=== PATIENT | male | born 1960 | race Caucasian/White ===

== ENCOUNTER 2021-01-18 21:02 | Inpatient (IN) | payer MEDICARE, OTHER ==
[~2021-01-18] VITALS: Ht 188 cm; Wt 82.1 kg
[2021-01-18] MEDS ORDERED: LEVO137T2 PO (21:36)
[2021-01-18] MEDS ORDERED: HYDR-894 PO (21:36)
[2021-01-18] MEDS ORDERED: GABA600T PO (21:36)
[2021-01-18] MEDS ORDERED: FAMO-132 PO (21:36)
[2021-01-18] MEDS ORDERED: EMPA25TA PO (21:36)
[2021-01-18] MEDS ORDERED: MAGN400O6 PO (21:36)
[2021-01-18] MEDS ORDERED: INSU100V28 SQ (21:36)
[2021-01-18] MEDS ORDERED: BISA10SU61 RC (21:36)
[2021-01-18] MEDS ORDERED: NA P133E RC (21:36)
[2021-01-18] MEDS ORDERED: NIFE-34 PO (21:36)
[2021-01-18] MEDS ORDERED: DULO60CA45 PO (21:36)
[2021-01-18] MEDS ORDERED: ESCI5TAB PO (21:36)
[2021-01-18] MEDS ORDERED: BUPR300T52 PO (21:36)
[2021-01-18] MEDS ORDERED: NITR0.4T SL (21:36)
[2021-01-18] MEDS ORDERED: LIRA0.6P2 SQ (21:36)
[2021-01-18] MEDS ORDERED: NALO4SPR NS (21:37)
[2021-01-18] MEDS ORDERED: INSU100V28 (21:37)
[2021-01-18] MEDS ORDERED: ACET-2154 PO (21:37)
[2021-01-18] MEDS ORDERED: METH-807 PO (21:37)
[2021-01-18] MEDS ORDERED: ACET-73 PO (21:37)
[2021-01-18] MEDS ORDERED: INSU100V7 SQ (21:37)
[2021-01-18] MEDS ORDERED: ATOR20TA PO (21:37)
[2021-01-18] MEDS ORDERED: OXYC10TA49 PO (21:37)
[2021-01-18 21:57] LABS: HEMATOCRIT 32.8 % (36.7-47.1); MEAN CORPUSCULAR HEMOGLOBIN 30.3 uug (23.8-33.4); MEAN CORPUSCULAR VOLUME 90.6 fL (73.0-96.2); PLATELET COUNT (AUTO) 489 K/uL (152-348)
[2021-01-18 22:02] LABS: CARBON DIOXIDE 25 mmol/L (21-32); CHLORIDE 103 mmol/L (98-107); CREATININE 1.8 mg/dL (0.6-1.3); GLUCOSE 310 mg/dL (74-106); POTASSIUM 4.5 mmol/L (3.5-5.1); UREA NITROGEN, BLOOD 22 mg/dL (7-18)
[2021-01-18 22:07] LABS: ALANINE AMINOTRANSFERASE 14 U/L (16-63); ALKALINE PHOSPHATASE 86 U/L (50-136); ASPARTATE AMINOTRANSFERASE 7 U/L (15-37); BILIRUBIN,DIRECT < 0.1 mg/dL (0.0-0.2); BILIRUBIN,TOTAL 0.3 mg/dL (0.2-1.0); TOTAL PROTEIN, SERUM 7.8 g/dL (6.4-8.2)
--- NOTE | 2021-01-18 22:36 | NUR ---
Per laborer beam house, 1:1 sitter coming in at 2300. Security standby for patient safety.
--- NOTE | 2021-01-18 22:39 | NUR ---
Sitter now at bedside, direct observation ongoing.
--- NOTE | 2021-01-18 22:50 | NUR ---
Pt medically cleared by Dr. Price
--- NOTE | 2021-01-18 23:12 | NUR ---
Pt. admitted to [facility], under care of Dr. Dalal/Mona Montoya NP Dx: Psychsis/5150 Hold DTS Belongs List completed. MRSA swab done
[2021-01-18] MEDS ORDERED: MAGNESIUM HYDROXIDE 30 ML LIQUID UDC PO PRN (23:30)
[2021-01-18] MEDS ORDERED: MAG HYDROX/AL HYDROX/SIMETH 30 ML LIQUID UDC PO PRN (23:30)
[2021-01-18] MEDS ORDERED: ACETAMINOPHEN 325 MG TABLET PO PRN (23:30)
[2021-01-19] MEDS: TEMAZEPAM 7.5 MG CAPSULE PO PRN (00:08)
[2021-01-19 00:15] VITALS: BP 161/73
--- NOTE | 2021-01-19 01:39 | NUR ---
Received pt from ER on a gurney in a safe, stable condition at 2330. Alert/oriented x 3. Pt is on 5150 hold for DTS. Per hold, pt is here because of SI, telling his roommate at the SNF that he wanted to hang himself. Upon assessment, pt is cooperative with admission procedure, able to contract for safety and provide details of what happened. Able to make needs known and express himself well. Oriented pt to the unit and his room, assisted to a comfortable position. Psych and MD aware of admission. Pt's Rights Handbook and Advisement given. Safety precautions in place, q15 mins check to be done per unit protocol. Refused assessment of and interventions for amputation site at the time of admission, stating the dressing was changed yesterday at the SNF and that dressing changes are done at the same facility daily. Will endorse accordingly and continue to monitor.
[2021-01-19] MEDS: LORAZEPAM 1 MG TABLET PO PRN (02:09)
--- NOTE | 2021-01-19 06:08 | NUR ---
This nurse called Erlinda Esparza NP ([facility] on-call) to request for pt's med recon. LEASE ADMINISTRATION ANALYST agreed to do it.
--- NOTE | 2021-01-19 06:11 | NUR ---
Firearms Report: Policy Service Coordinator completed and submitted a [employer] firearms report for 5150 grave disability certification. A copy of report has been placed in patient chart.
[2021-01-19] MEDS ORDERED: ACETAMINOPHEN 325 MG TABLET PO PRN ×2 (06:15)
[2021-01-19] MEDS ORDERED: MAGNESIUM HYDROXIDE 30 ML LIQUID UDC PO PRN (06:15)
[2021-01-19] MEDS ORDERED: FLEET ENEMA 133 ML BOTTLE RC PRN (06:15)
[2021-01-19] MEDS ORDERED: INSULIN REGULAR, HUMAN 300 UNIT/3 ML VIAL SQ PRN (06:15)
[2021-01-19] MEDS ORDERED: Medication Not On Formulary EA (Oxycodone Hcl 1 TAB) PO PRN (06:15)
[2021-01-19] MEDS ORDERED: BISACODYL 10 MG SUPP.RECT RC PRN (06:15)
[2021-01-19] MEDS ORDERED: DEXTROSE 50% 50 ML DISP.SYRIN IV PRN ×2 (06:15→19:15)
[2021-01-19] MEDS ORDERED: NITROGLYCERIN 0.4 MG/TAB BOTTLE SL PRN (06:15)
[2021-01-19] MEDS ORDERED: ACETAMINOPHEN ES 500 MG TABLET PO PRN (06:15)
[2021-01-19] MEDS: BLOOD SUGAR DIAGNOSTIC 1 EACH STRIP VI SCH ×4 (07:30→21:00)
--- NOTE | 2021-01-19 07:38 | NUR ---
SW Initial Discharge Plan: Patient currently resides at [facility] [place] [address]; ). Admissions is currently closed and this SW will follow up with admissions on 01/22/21 if pt is accepted back. This SW contacted patient's son Balbir ([phone]) to gather collateral and this SW left a voicemail. SW will coordinate discharge plan with MD and treatment team.
--- NOTE | 2021-01-19 07:40 | NUR ---
SW Family Contact: This SW contacted patient's son Balbir ([phone]) and discussed treatment and discharge plan.
--- NOTE | 2021-01-19 07:42 | NUR ---
Treatment Plan: Pt appeared guarded and refused to sign.
[2021-01-19 07:56] VITALS: BP 135/64
[2021-01-19] MEDS ORDERED: MISCELLANEOUS MED XX PRN (08:30)
[2021-01-19] MEDS ORDERED: Medication Not On Formulary EA (Empagliflozin (Jardiance) 25 MG) PO SCH (09:00)
[2021-01-19] MEDS ORDERED: OXYCODONE HCL 5 MG TABLET PO PRN (09:45)
[2021-01-19] MEDS: hydrALAZINE HCL 25 MG TABLET PO SCH ×2 (09:52→16:46)
[2021-01-19] MEDS: FAMOTIDINE 20 MG TABLET PO SCH (09:52)
[2021-01-19] MEDS: NIFEdipine XL 60 MG TABSR PO SCH (09:54)
[2021-01-19] MEDS: LEVOTHYROXINE SODIUM 137 MCG TABLET PO SCH (09:54)
[2021-01-19] MEDS: METHOCARBAMOL 750 MG TABLET PO PRN (09:54)
[2021-01-19] MEDS: GABAPENTIN 300 MG CAPSULE PO SCH ×3 (09:56→21:54)
[2021-01-19 15:56] VITALS: BP 139/65
[2021-01-19] MEDS: DULOXETINE 60 MG CAPSULE.DR PO SCH (17:43)
--- NOTE | 2021-01-19 20:00 | NUR ---
RECEIVED REPORT FROM AM NURSE KARINA INTRODUCED MYSELF TO PT INFORMED HIM I WILL BE HIS NURSE FOR REST OF SHIFT PT NODDED HIS HEAD AND WENT BACK TO SLEEP.
[2021-01-19 20:02] VITALS: BP 136/64
[2021-01-19] MEDS: INSULIN GLARGINE,HUM 300 UNITS/3 ML CARTRIDGE SQ SCH (21:00)
--- NOTE | 2021-01-19 21:30 | NUR ---
PT REFUSED HS LANTUS AND ACCUCHECK BUT TOOK HIS MEDICATION ORDERED NO ADVERSE REACTION NOTED. WILL CONTINUE TO MONITOR.
[2021-01-19] MEDS: ATORVASTATIN 20 MG TABLET PO SCH (21:54)
[2021-01-20] MEDS: GABAPENTIN 300 MG CAPSULE PO SCH ×3 (06:12→21:06)
[2021-01-20] MEDS: LEVOTHYROXINE SODIUM 137 MCG TABLET PO SCH (06:12)
[2021-01-20] MEDS: BLOOD SUGAR DIAGNOSTIC 1 EACH STRIP VI SCH ×4 (06:13→20:37)
[2021-01-20 08:00] VITALS: BP 116/57
[2021-01-20] MEDS: INSULIN GLARGINE,HUM 300 UNITS/3 ML CARTRIDGE SQ SCH ×2 (09:00→20:33)
[2021-01-20] MEDS: hydrALAZINE HCL 25 MG TABLET PO SCH ×2 (09:00→16:52)
[2021-01-20] MEDS: buPROPion XL 150 MG TAB.SR.24H PO SCH (09:24)
[2021-01-20] MEDS: FAMOTIDINE 20 MG TABLET PO SCH (09:24)
[2021-01-20] MEDS: DULOXETINE 60 MG CAPSULE.DR PO SCH (09:25)
[2021-01-20] MEDS: METHOCARBAMOL 750 MG TABLET PO PRN (09:25)
[2021-01-20] MEDS: NIFEdipine XL 60 MG TABSR PO SCH (09:26)
[2021-01-20] MEDS: INSULIN REGULAR, HUMAN 300 UNIT/3 ML VIAL SQ PRN ×2 (12:01→17:08)
[2021-01-20 16:04] VITALS: BP 110/51
--- NOTE | 2021-01-20 18:17 | NUR ---
Patient resting in bed. Alert and oriented x2-3. No signs of acute distress. Ambulatory with walker. Able to care for self. Patient compliant with medications and care. Patient complained of pain on right foot, contacted Dr. Swartz for orders, awaiting call back. Patient denies SI/ HI. Encouraged patient to interact with peers and staff, but patient remains in room and withdrawn. Frequent patient rounding for safety. Will endorse to incoming shift for continuity of care.
[2021-01-20 20:00] VITALS: BP 126/63
[2021-01-20] MEDS: ATORVASTATIN 20 MG TABLET PO SCH (20:29)
[2021-01-20] MEDS: TEMAZEPAM 7.5 MG CAPSULE PO PRN (20:29)
[2021-01-20] MEDS: INSULIN REGULAR, HUMAN 300 UNITS/3 ML VIAL SQ PRN (20:35)
[2021-01-21] MEDS: LEVOTHYROXINE SODIUM 137 MCG TABLET PO SCH (06:21)
[2021-01-21] MEDS: GABAPENTIN 300 MG CAPSULE PO SCH ×2 (06:22→20:09)
--- NOTE | 2021-01-21 06:49 | NUR ---
Pt asleep at this time, no s/s of distress. Slept for 7.30hrs. No change in LOC. Pt compliant with meds during the shift. BG checked, routing Lantus and Humulin R given per SS at bedtime. Snacks provided. Needs attended to in a timely manner. Q15 min checks done. Safety precautions in place. Will endorse accordingly.
--- NOTE | 2021-01-21 07:15 | NUR ---
NURSE REPORT Report obtained from night nurse Josh and this nurse assume care of patient. No sxs of pain or discomfort. BG this am- 260. Insulin given as ordered.
[2021-01-21 07:30] VITALS: BP 126/52
[2021-01-21] MEDS: BLOOD SUGAR DIAGNOSTIC 1 EACH STRIP VI SCH ×4 (07:30→20:10)
[2021-01-21] MEDS: NIFEdipine XL 60 MG TABSR PO SCH (08:51)
[2021-01-21] MEDS: hydrALAZINE HCL 25 MG TABLET PO SCH ×2 (08:51→16:39)
[2021-01-21] MEDS: FAMOTIDINE 20 MG TABLET PO SCH (08:51)
[2021-01-21] MEDS: DULOXETINE 60 MG CAPSULE.DR PO SCH (08:52)
[2021-01-21] MEDS: buPROPion XL 150 MG TAB.SR.24H PO SCH (08:54)
[2021-01-21] MEDS: INSULIN REGULAR, HUMAN 300 UNIT/3 ML VIAL SQ PRN ×3 (08:56→16:53)
[2021-01-21] MEDS: INSULIN GLARGINE,HUM 300 UNITS/3 ML CARTRIDGE SQ SCH ×2 (08:59→20:12)
[2021-01-21] MEDS: METHOCARBAMOL 750 MG TABLET PO PRN (09:07)
--- NOTE | 2021-01-21 12:15 | NUR ---
NURSE CARE BG before lunch- 229 and received 4 units Regular Insulin. This am, BG 212 and received 4 units Regular Insulin and had Glargine 10 units.
[2021-01-21] MEDS ORDERED: GABAPENTIN 300 MG CAPSULE PO SCH (14:00)
[2021-01-21] MEDS ORDERED: GABAPENTIN 400 MG CAPSULE PO SCH (14:00)
[2021-01-21 15:06] VITALS: BP 126/60
--- NOTE | 2021-01-21 17:45 | NUR ---
NURSE CARE BG before dinner 326 and 8 units Regular Insulin given. Roommate was asking that he be moved, sayuing this person will do harm, to him. Patient stated he has no SI and no intentions of hurting anyone.
--- NOTE | 2021-01-21 19:15 | NUR ---
Report given to CHARLI Maravilla) to assume care of patient. SBAR given. On BG AC & HS. Before dinner- 326, and patient given 8 units Regular Insulin
[2021-01-21 20:07] VITALS: BP 132/56
[2021-01-21] MEDS: ATORVASTATIN 20 MG TABLET PO SCH (20:09)
[2021-01-21] MEDS: INSULIN REGULAR, HUMAN 300 UNITS/3 ML VIAL SQ PRN (20:15)
[2021-01-21] MEDS: TEMAZEPAM 7.5 MG CAPSULE PO PRN (21:20)
[2021-01-21] MEDS: LORAZEPAM 1 MG TABLET PO PRN (23:06)
[2021-01-22] MEDS: LEVOTHYROXINE SODIUM 137 MCG TABLET PO SCH (06:15)
[2021-01-22] MEDS: BLOOD SUGAR DIAGNOSTIC 1 EACH STRIP VI SCH ×4 (06:18→20:13)
--- NOTE | 2021-01-22 06:28 | NUR ---
GPS: Pt.slept 6 hrs.last night. B.S. now is 216mg/dl. Denies wanting to harm self. Safety checks done Q15 minutes as scheduled. Will continue to monitor.
[2021-01-22 07:30] VITALS: BP 136/60
[2021-01-22] MEDS: NIFEdipine XL 60 MG TABSR PO SCH (08:29)
[2021-01-22] MEDS: buPROPion XL 150 MG TAB.SR.24H PO SCH (08:29)
[2021-01-22] MEDS: FAMOTIDINE 20 MG TABLET PO SCH (08:30)
[2021-01-22] MEDS: hydrALAZINE HCL 25 MG TABLET PO SCH ×2 (08:30→16:31)
[2021-01-22] MEDS: GABAPENTIN 300 MG CAPSULE PO SCH ×2 (08:30→20:07)
[2021-01-22] MEDS: DULOXETINE 60 MG CAPSULE.DR PO SCH (08:30)
[2021-01-22] MEDS: INSULIN REGULAR, HUMAN 300 UNIT/3 ML VIAL SQ PRN ×4 (08:31→16:38)
[2021-01-22] MEDS: INSULIN GLARGINE,HUM 300 UNITS/3 ML CARTRIDGE SQ SCH ×2 (08:37→20:14)
[2021-01-22 15:06] VITALS: BP 118/54
--- NOTE | 2021-01-22 15:46 | NUR ---
This job specification writer spoke with wound care nurse, Elizabeth, who stated she will see patient tomorrow. 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 patient is refusing for this RN to look at wound and to open dressing that is wrapped around his right foot. patient states he does not want anyone to look at it unless wound care will be done, patient informed that this job specification writer can assess foot and determine next appropriate actions, but he refuses. patient is able to ambulate with a FWW. patient states that he uses Oxycodone for pain but that medication is not given to him while on this unit.
[2021-01-22] MEDS ORDERED: DEXTROSE 50% 50 ML DISP.SYRIN IV PRN (17:00)
--- NOTE | 2021-01-22 17:43 | NUR ---
BLOOD SUGAR CHECK: Blood sugar 426. Patient showing no signs or symptoms of hyperglycemia. alert and oriented x4. 10 units of regular insulin given per sliding scale order. Dr. Reginaldo Landry notified. Orders given for an additional 6 units of regular insulin, increase Lantus to 20 Units SQ Q12 hours, and increase sliding scale insulin to moderate scale. Orders noted and carried out. Patient provided with education about change in orders and how to control DM through appropriate diet since patient requests snacks and milk throughout the day. Patient is able to verbalize understanding of teaching. Patient ate dinner, tolerate food and fluids well.
[2021-01-22] MEDS: ATORVASTATIN 20 MG TABLET PO SCH (20:07)
[2021-01-22 20:08] VITALS: BP 133/61
[2021-01-22] MEDS: INSULIN REGULAR, HUMAN 300 UNITS/3 ML VIAL SQ PRN (20:15)
[2021-01-22] MEDS ORDERED: INSULIN GLARGINE,HUM 300 UNITS/3 ML CARTRIDGE SQ SCH (21:00)
[2021-01-23] MEDS: LEVOTHYROXINE SODIUM 137 MCG TABLET PO SCH (06:15)
[2021-01-23] MEDS: BLOOD SUGAR DIAGNOSTIC 1 EACH STRIP VI SCH ×4 (06:32→20:04)
[2021-01-23 07:12] LABS: HEMATOCRIT 32.9 % (36.7-47.1); MEAN CORPUSCULAR HEMOGLOBIN 29.5 uug (23.8-33.4); MEAN CORPUSCULAR VOLUME 89.6 fL (73.0-96.2); PLATELET COUNT (AUTO) 444 K/uL (152-348)
[2021-01-23 07:29] LABS: ALANINE AMINOTRANSFERASE 15 U/L (16-63); ALKALINE PHOSPHATASE 78 U/L (50-136); ASPARTATE AMINOTRANSFERASE < 5 U/L (15-37); BILIRUBIN,TOTAL 0.3 mg/dL (0.2-1.0); CARBON DIOXIDE 24 mmol/L (21-32); CHLORIDE 108 mmol/L (98-107); CREATININE 1.4 mg/dL (0.6-1.3); GLUCOSE 137 mg/dL (74-106); MAGNESIUM 2.5 mg/dL (1.8-2.4); PHOSPHOROUS 4.2 mg/dL (2.5-4.9); TOTAL PROTEIN, SERUM 7.6 g/dL (6.4-8.2); UREA NITROGEN, BLOOD 42 mg/dL (7-18)
[2021-01-23 07:30] VITALS: BP 107/48
[2021-01-23] MEDS: hydrALAZINE HCL 25 MG TABLET PO SCH ×2 (08:32→16:45)
[2021-01-23] MEDS: NIFEdipine XL 60 MG TABSR PO SCH (08:33)
[2021-01-23] MEDS: FAMOTIDINE 20 MG TABLET PO SCH (08:33)
[2021-01-23] MEDS: GABAPENTIN 300 MG CAPSULE PO SCH ×3 (08:33→21:40)
[2021-01-23] MEDS: DULOXETINE 60 MG CAPSULE.DR PO SCH (08:34)
[2021-01-23] MEDS: buPROPion XL 150 MG TAB.SR.24H PO SCH (08:34)
[2021-01-23] MEDS: INSULIN GLARGINE,HUM 300 UNITS/3 ML CARTRIDGE SQ SCH ×2 (08:39→20:23)
[2021-01-23] MEDS: INSULIN REGULAR, HUMAN 300 UNIT/3 ML VIAL SQ PRN ×2 (11:51→16:58)
--- NOTE | 2021-01-23 12:02 | NUR ---
WOUND CARE CONSULT: PT PRESENTS WITH RT FOOT WOUND WITH BONE EXPOSURE, PRESENT ON ADMISSION, NO DRAINAGE. DPM CONSULT CALLED TO DR BELCZYK. ARNETT IN AGREEMENT WITH PLAN OF CARE. FOAM DRESSING IN USE AT THIS TIME.
--- NOTE | 2021-01-23 15:24 | NUR ---
Individual Therapy: civil service worker met with patient for brief counseling and assessed for level of suicidality. civil service worker assessed for suicidal thoughts, patient denied suicidal thoughts. Patient stated "I never had suicidal thoughts". Pt expressed that at [facility] people kept saying that he had "girl problems" and that "I was only friends with an employee". Pt unable to focus and is fixated on his 5250 and discharge. SW unable to conduct therapy at this time.
[2021-01-23 16:03] VITALS: BP 147/65
[2021-01-23] MEDS ORDERED: SODIUM HYPOCHLORITE 0.25% (HALF STRENGTH) 480 ML BOTTLE TOP SCH (17:00)
--- NOTE | 2021-01-23 17:00 | NUR ---
Dr. Graham.Sharon ALEMAN here seen and checked patient's right foot,wound C/s sent to lab, treatment done as ordered
[2021-01-23 20:10] VITALS: BP 109/56
--- NOTE | 2021-01-23 20:14 | NUR ---
TEXTED DR. THORNE FOR MRI APPROVAL.
[2021-01-23] MEDS: INSULIN REGULAR, HUMAN 300 UNITS/3 ML VIAL SQ PRN (20:25)
[2021-01-23] MEDS ORDERED: ATORVASTATIN 40 MG TABLET PO SCH (21:00)
[2021-01-24] MEDS: GABAPENTIN 300 MG CAPSULE PO SCH ×2 (06:07→14:31)
[2021-01-24] MEDS: LEVOTHYROXINE SODIUM 137 MCG TABLET PO SCH (06:07)
[2021-01-24] MEDS: BLOOD SUGAR DIAGNOSTIC 1 EACH STRIP VI SCH ×2 (06:20→12:34)
[2021-01-24 07:30] VITALS: BP 116/63
[2021-01-24] MEDS: FAMOTIDINE 20 MG TABLET PO SCH (08:58)
[2021-01-24] MEDS: hydrALAZINE HCL 25 MG TABLET PO SCH (08:59)
[2021-01-24] MEDS: NIFEdipine XL 60 MG TABSR PO SCH (09:00)
[2021-01-24] MEDS: buPROPion XL 150 MG TAB.SR.24H PO SCH (09:00)
[2021-01-24] MEDS: DULOXETINE 60 MG CAPSULE.DR PO SCH (09:00)
[2021-01-24] MEDS ORDERED: SODIUM HYPOCHLORITE 0.125% (QUARTER STRENGTH) 473 ML BOTTLE TP SCH (09:00)
[2021-01-24] MEDS: INSULIN GLARGINE,HUM 300 UNITS/3 ML CARTRIDGE SQ SCH (09:19)
[2021-01-24] MEDS: INSULIN REGULAR, HUMAN 300 UNIT/3 ML VIAL SQ PRN (12:31)
--- NOTE | 2021-01-24 13:51 | NUR ---
Transfer Note: Patient will be transferred to medical floor due to Osteomyelitis. Dr. Dalal will discontinue the hold. Patient is from [facility] [address] [place] [address]; ). Soft Boarder spoke with SUSANNE, Economic Research Assistant at [facility]; ([phone]), who stated patient will be accepted back upon discharge. Patient is alert and oriented x3 and is not able to plan for self-care at this time but is willing to accept care provided at his facility. Patient denies any suicidal or homicidal ideations. Patients Son Balbir ([phone]) is involved in patient's care. Patient will continue to follow-up with his Psychiatrist Dr. Dalal and Online Content Developer Dr. Vasquez at [facility] [address] [place] [address]; ).
--- NOTE | 2021-01-24 15:08 | NUR ---
Gps/Promotion Officer- Patient was fully aware, informed of his MRI of the right foot scheduled this pm. he will be transported via ambulance as arranged by Appeals Writer from [facility] . Patient will be discharge to 3rd floor when he comes back from MRI for higher level of care. Will coordinate discharge to 3rd floor with Process Mechanic Rahoni.
--- NOTE | 2021-01-24 15:50 | NUR ---
Gps/Glass Ribbon Machine Operator Assistant- Discharge plan changed to [facility] 3rd floor instead for [facility]. 3rd floor per Case Planner Sydnie
[2021-01-24 16:00] VITALS: BP 130/70
--- NOTE | 2021-01-24 16:23 | NUR ---
Gps/Yard Coordinator- Hold dc'd as ordered by Dr Dalal, patient was well informed of discharge to [facility] , schedule for early procedure as noted. Patient is to be discharged to [facility] to room # 320 , report given to Chris Mclaughlin . Discharged to [facility], via ambulance in good spirit, denies SI. nor HI. all belongings and valuables given back to patient.
== END 2021-01-24 16:30 | disposition short-term general hospital (02) | DRG 885 ==
LOC: ER 21:02 → GPS 23:08
PROVIDERS: ADMIT Psychiatry & Neurology Psychiatry; ATTEND Internal Medicine
DX: F33.3 Major depressive disorder, recurrent, severe with psychotic symptoms (principal); N18.9 Chronic kidney disease, unspecified; N17.0 Acute kidney failure with tubular necrosis; M86.8X7 Other osteomyelitis, ankle and foot; E11.65 Type 2 diabetes mellitus with hyperglycemia; R45.851 Suicidal ideations; L97.518 Non-pressure chronic ulcer of other part of right foot with other specified severity; X83.8XXA Intentional self-harm by other specified means, initial encounter; Y92.129 Unspecified place in nursing home as the place of occurrence of the external cause; E11.51 Type 2 diabetes mellitus with diabetic peripheral angiopathy without gangrene; I45.10 Unspecified right bundle-branch block; Z79.899 Other long term (current) drug therapy; D64.9 Anemia, unspecified; D72.829 Elevated white blood cell count, unspecified; E03.9 Hypothyroidism, unspecified; E11.42 Type 2 diabetes mellitus with diabetic polyneuropathy; E78.5 Hyperlipidemia, unspecified; G89.29 Other chronic pain; J44.9 Chronic obstructive pulmonary disease, unspecified; Z79.4 Long term (current) use of insulin; Z98.62 Peripheral vascular angioplasty status; Z20.822 Contact with and (suspected) exposure to COVID-19; E11.621 Type 2 diabetes mellitus with foot ulcer; E11.69 Type 2 diabetes mellitus with other specified complication; Z89.421 Acquired absence of other right toe(s); E11.22 Type 2 diabetes mellitus with diabetic chronic kidney disease; I12.9 Hypertensive chronic kidney disease with stage 1 through stage 4 chronic kidney disease, or unspecified chronic kidney disease; Y93.9 Activity, unspecified; M48.00 Spinal stenosis, site unspecified; F03.90 Unspecified dementia, unspecified severity, without behavioral disturbance, psychotic disturbance, mood disturbance, and anxiety; F17.210 Nicotine dependence, cigarettes, uncomplicated
CPT/HCPCS: 36415; 71045; 73630; 83735; 84100; 85025; 85651; 86140; 87070; 87077; J1815

== ENCOUNTER 2021-02-13 23:43 | Inpatient (IN) | payer MEDICARE, OTHER ==
[~2021-02-13] VITALS: Ht 182.9 cm; Wt 84.8 kg
[~2021-02-13 23:43] MED LIST: ACET-2154 PO; ACET-73 PO; ATOR20TA PO; BISA10SU61 RC; EMPA25TA PO; FAMO-132 PO; GABA600T PO; HYDR-894 PO; INSU100V28; INSU100V28 SQ; INSU100V7 SQ; LEVO137T2 PO; LIRA0.6P2 SQ; MAGN400O6 PO; METH750T3 PO; NA P133E RC; NALO4SPR NS; NIFE-34 PO; NITR0.4T SL; OXYC10TA49 PO
[2021-02-14 00:28] LABS: HEMATOCRIT 26.3 % (36.7-47.1); MEAN CORPUSCULAR HEMOGLOBIN 30.6 uug (23.8-33.4); MEAN CORPUSCULAR VOLUME 92.2 fL (73.0-96.2); PLATELET COUNT (AUTO) 327 K/uL (152-348)
[2021-02-14 00:44] LABS: ALANINE AMINOTRANSFERASE 13 U/L (16-63); ALKALINE PHOSPHATASE 86 U/L (50-136); ASPARTATE AMINOTRANSFERASE 8 U/L (15-37); BILIRUBIN,DIRECT 0.1 mg/dL (0.0-0.2); BILIRUBIN,TOTAL 0.2 mg/dL (0.2-1.0); CARBON DIOXIDE 21 mmol/L (21-32); CHLORIDE 109 mmol/L (98-107); CREATININE 2.1 mg/dL (0.6-1.3); GLUCOSE 240 mg/dL (74-106); POTASSIUM 3.8 mmol/L (3.5-5.1); TOTAL PROTEIN, SERUM 7.2 g/dL (6.4-8.2); UREA NITROGEN, BLOOD 38 mg/dL (7-18)
[2021-02-14 00:46] LABS: ACETAMINOPHEN < 2.0 ug/mL (10-30)
[2021-02-14] MEDS ORDERED: ESCI5TAB PO (00:54)
[2021-02-14] MEDS ORDERED: INSU100V7 SQ (00:54)
[2021-02-14] MEDS ORDERED: CLOP75TA15 PO (00:54)
[2021-02-14] MEDS ORDERED: ASPI81TA31 PO (00:54)
[2021-02-14] MEDS ORDERED: FERR325T28 PO (00:54)
[2021-02-14] MEDS ORDERED: ARIP5TAB10 PO (00:54)
[2021-02-14] MEDS ORDERED: LEVO100T10 PO (00:54)
[2021-02-14] MEDS ORDERED: INSU100V SUBCUT (00:54)
[2021-02-14] MEDS ORDERED: MULT-594 PO (00:54)
[2021-02-14] MEDS ORDERED: NIFE30TA91 PO (00:54)
[2021-02-14 00:59] LABS: ETHANOL < 3 MG/DL (0-0)
--- NOTE | 2021-02-14 01:00 | NUR ---
Called [facility], Dr. Rico will call back.
--- NOTE | 2021-02-14 01:15 | NUR ---
Pt. was sleeping in bed, woke pt up to assess the patient, assess his foot, and request that he give us urine. Pt. requested he see the 5150 hold paperwork. Showed pt. the paperwork, he became angry and argumentative about being on a hold, stating he did not need to be here, and denying that he wanted to harm himself. He requested we set him up with transportation so he can go home. Explained to the pt. that we cannot let him leave. Pt began rasing his voice, collecting his belongings to leave. Verbal deescalation attempted. Security called.
[2021-02-14] MEDS ORDERED: Z GUARD REMEDY PASTE 57 GM TUBE TOP PRN (01:30)
[2021-02-14] MEDS ORDERED: ONDANSETRON 4 MG/2 ML VIAL IV PRN (01:30)
[2021-02-14] MEDS ORDERED: DEXTROSE 50% 50 ML DISP.SYRIN IV PRN (01:30)
[2021-02-14] MEDS ORDERED: HALOPERIDOL LACTATE 5 MG/1 ML VIAL IM ONE (02:30)
[2021-02-14] MEDS ORDERED: LORAZEPAM 2 MG/1 ML VIAL IM ONE (02:30)
--- NOTE | 2021-02-14 02:30 | NUR ---
Monitoring pt.1:1, multiple attempts to verbally keep patient in his room but pt. refusing to cooperate. notified.
[2021-02-14] MEDS ORDERED: HALOPERIDOL LACTATE 5 MG/1 ML VIAL ONE (02:35)
[2021-02-14] MEDS ORDERED: LORAZEPAM 2 MG/1 ML VIAL ONE (02:36)
--- NOTE | 2021-02-14 02:40 | NUR ---
Pt. attempted to lock himself in the restroom. Security called and shot of ativan and haldol given. pt. is in bed now, not currently yelling or attempting to leave. Pt. is being monitored 1:1.
[2021-02-14] MEDS ORDERED: diphenhydrAMINE 50 MG/1 ML VIAL IM ONE (03:00)
--- NOTE | 2021-02-14 03:01 | NUR ---
Pt. requested to call his children to let them know he is in the hospital. Phone provided.
[2021-02-14] MEDS ORDERED: diphenhydrAMINE 50 MG/1 ML VIAL ONE (03:07)
--- NOTE | 2021-02-14 03:24 | NUR ---
Pt sleeping. Will continue to monitor.
--- NOTE | 2021-02-14 06:17 | NUR ---
Pt sleeping in bed. No changes in condition. Will continue to monitor.
--- NOTE | 2021-02-14 07:10 | NUR ---
Received pt in bed, sleeping, NAD noted at this time. Pt remaines on continues monitoring.
--- NOTE | 2021-02-14 08:22 | NUR ---
1 to 1 sitter(Eneida Muro) at the bedside.
[2021-02-14] MEDS ORDERED: LEVOTHYROXINE SODIUM 100 MCG TABLET PO SCH (09:00)
[2021-02-14] MEDS: HEPARIN SODIUM,PORCINE 5,000 UNITS/ML VIAL SQ SCH ×2 (09:00→21:16)
--- NOTE | 2021-02-14 09:00 | NUR ---
Pt is very lethergic, unable to fully arouse to eat breakfast. Since pt is not eating, insulin coverage held for blood glucose of 235. Will continue monitoring.
[2021-02-14] MEDS: BLOOD SUGAR DIAGNOSTIC 1 EACH STRIP VI SCH ×4 (09:01→21:16)
--- NOTE | 2021-02-14 09:40 | NUR ---
Pt has a double lumen PICC on RUE.
--- NOTE | 2021-02-14 09:40 | NUR ---
Pt is awake, verbally responsive A/O x4. Breakfast tray oprovided, pt ate w/o assistance.
--- NOTE | 2021-02-14 09:42 | NUR ---
Pt refused to change to hospital gown, stating "I don't want it, I Do what I want." Pt denies SI/HI.
--- NOTE | 2021-02-14 09:45 | NUR ---
Pt refused insulin coverage.
--- NOTE | 2021-02-14 09:46 | NUR ---
Pt refused all Po/SQ medications. Placed a call to Erlinda Esparza pt's dmitting MD.
[2021-02-14] MEDS: ASPIRIN 81 MG TAB.CHEW PO SCH (10:07)
[2021-02-14] MEDS: hydrALAZINE HCL 25 MG TABLET PO SCH ×2 (10:07→17:20)
[2021-02-14] MEDS: CLOPIDOGREL 75 MG TABLET PO SCH (10:08)
[2021-02-14] MEDS: FAMOTIDINE 20 MG TABLET PO SCH ×2 (10:08→17:20)
[2021-02-14] MEDS: MULTIVITAMINS,THERAPEUTIC TABLET PO SCH (10:08)
--- NOTE | 2021-02-14 10:21 | NUR ---
Spoke to Pt's Psychiatris, Dr Dalal, notified him of Pt's medication refusal. Awaiting call from admitting MD.
--- NOTE | 2021-02-14 10:45 | NUR ---
Patient is resting comfortably in bed with eyes closed, NAD noted. 1 to 1 sitter at the bedside.
--- NOTE | 2021-02-14 11:03 | NUR ---
Paged Dr Swartz for Pt. Awaiting call back.
[2021-02-14] MEDS ORDERED: INSULIN REGULAR, HUMAN 300 UNIT/3 ML VIAL ONE (11:50)
[2021-02-14] MEDS: INSULIN REGULAR, HUMAN 300 UNIT/3 ML VIAL SQ PRN ×3 (12:27→21:17)
--- NOTE | 2021-02-14 12:43 | NUR ---
Dr Dalal seen and evaluated the pt.
--- NOTE | 2021-02-14 13:18 | NUR ---
Patient is resting comfortably in bed with eyes closed, NAD noted.
--- NOTE | 2021-02-14 13:41 | NUR ---
Spoke Dr Swartz( admitting), no new orders received.
[2021-02-14] MEDS ORDERED: hydrALAZINE HCL 25 MG TABLET ONE (17:22)
[2021-02-14] MEDS ORDERED: FAMOTIDINE 20 MG TABLET ONE (17:22)
--- NOTE | 2021-02-14 19:14 | NUR ---
Report recieved from AIRAM Ahumada. Pt. is currently sleeping. Will continue to monitor.
--- NOTE | 2021-02-14 20:35 | NUR ---
Gave report to AIRAM Hicks.
[2021-02-14 21:00] VITALS: BP 116/78
[2021-02-14] MEDS: ATORVASTATIN 20 MG TABLET PO SCH (21:17)
[2021-02-15 04:00] VITALS: BP 112/64
--- NOTE | 2021-02-15 05:21 | NUR ---
Pt slept throughout the night. Denies chest pain or SOB. On a 5150 that is up 02/15/21 at 2208. Sitter at bedside. Pt refused to let this nurse take pictures of wounds or assess skin. Per ER nurse, patient has right foot ulcer. Pt anxious and withdrawn, but compliant at times. Safety and comfort provided. No other issues or concerns at this time, will endorse to day shift.
[2021-02-15] MEDS: LEVOTHYROXINE SODIUM 100 MCG TABLET PO SCH (06:25)
[2021-02-15] MEDS: BLOOD SUGAR DIAGNOSTIC 1 EACH STRIP VI SCH ×4 (06:30→20:19)
[2021-02-15 08:00] VITALS: BP 164/72
[2021-02-15] MEDS: CLOPIDOGREL 75 MG TABLET PO SCH (08:11)
[2021-02-15] MEDS: FAMOTIDINE 20 MG TABLET PO SCH (08:11)
[2021-02-15] MEDS: ASPIRIN 81 MG TAB.CHEW PO SCH (08:11)
[2021-02-15] MEDS: MULTIVITAMINS,THERAPEUTIC TABLET PO SCH (08:11)
[2021-02-15] MEDS: hydrALAZINE HCL 25 MG TABLET PO SCH ×2 (08:12→16:10)
[2021-02-15] MEDS: HEPARIN SODIUM,PORCINE 5,000 UNITS/ML VIAL SQ SCH ×2 (08:14→20:19)
[2021-02-15 08:21] VITALS: BP 155/64
[2021-02-15] MEDS: buPROPion XL 150 MG TAB.SR.24H PO SCH (11:33)
--- NOTE | 2021-02-15 16:10 | NUR ---
pt refusing to take his medication and check his blood sugar md and charge nurse made aware
[2021-02-15] MEDS: ATORVASTATIN 20 MG TABLET PO SCH (20:17)
--- NOTE | 2021-02-15 20:30 | NUR ---
RECEIVED PATIENT AWAKE IN BED WITH SITTER AT BEDSIDE. DYE RANGE TENDER REPORTED THAT PATIENT REFUSED VITALS. PATIENT ALSO REFUSED FOR BLOOD SUGAR TO BE TAKEN AND REFUSED ALL MEDICATIONS. MD AWARE. WILL CONTINUE TO MONITOR AND ASSESS.
[2021-02-16] MEDS: LEVOTHYROXINE SODIUM 100 MCG TABLET PO SCH (06:25)
[2021-02-16] MEDS: BLOOD SUGAR DIAGNOSTIC 1 EACH STRIP VI SCH ×4 (06:25→20:43)
--- NOTE | 2021-02-16 07:15 | NUR ---
RECEIVED PATIENT IN BED SLEEPING IN STABLE CONDITION, NO S/S OF ANY SOB, PAIN OR DISCOMFORT NOTED AT THIS TIME. SITTER AT BEDSIDE, SAFETY PRECAUTIONS IN PLACE. WILL CONTINUE TO MONITOR.
[2021-02-16 08:00] VITALS: BP 151/41
[2021-02-16] MEDS: ACETAMINOPHEN 325 MG TABLET PO PRN (08:12)
[2021-02-16] MEDS: hydrALAZINE HCL 25 MG TABLET PO SCH ×2 (08:15→16:44)
[2021-02-16] MEDS: ARIPIPRAZOLE 10 MG TABLET PO SCH (08:15)
--- NOTE | 2021-02-16 08:15 | NUR ---
PATIENT REFUSED MORNING MEDICATIONS STATING " THAT IS NOT MY REGIMEN, THE DOCTORS JUST WANT TO MAKE MONEY OFF OF ME, THERE IS NOTHING WRONG WITH ME.", EXPLAINED TO PATIENT WHAT TYPE OF MEDICATIONS HE WAS RECEIVING AND ADVISED HIM OF THE IMPORTANCE OF TAKING THE MEDICATIONS. PATIENT CONTINUED TO VERBALIZE REFUSAL OF MEDICATIONS.
[2021-02-16] MEDS: FAMOTIDINE 20 MG TABLET PO SCH (08:16)
[2021-02-16] MEDS: ASPIRIN 81 MG TAB.CHEW PO SCH (08:16)
[2021-02-16] MEDS: CLOPIDOGREL 75 MG TABLET PO SCH (08:16)
[2021-02-16] MEDS: MULTIVITAMINS,THERAPEUTIC TABLET PO SCH (08:16)
[2021-02-16] MEDS: buPROPion XL 150 MG TAB.SR.24H PO SCH (08:17)
[2021-02-16] MEDS: HEPARIN SODIUM,PORCINE 5,000 UNITS/ML VIAL SQ SCH ×2 (08:17→20:44)
[2021-02-16 09:15] LABS: HEMATOCRIT 32.3 % (36.7-47.1); MEAN CORPUSCULAR HEMOGLOBIN 30.1 uug (23.8-33.4); PLATELET COUNT (AUTO) 407 K/uL (152-348)
[2021-02-16 09:37] LABS: BILIRUBIN,TOTAL 0.3 mg/dL (0.2-1.0); CREATININE 1.7 mg/dL (0.6-1.3); MAGNESIUM 2.5 mg/dL (1.8-2.4); PHOSPHOROUS 3.5 mg/dL (2.5-4.9); POTASSIUM 3.8 mmol/L (3.5-5.1); TOTAL PROTEIN, SERUM 8.4 g/dL (6.4-8.2)
[2021-02-16 09:38] LABS: THYROID STIMULATING HORMONE 5.911 mIU/mL (0.358-3.740)
[2021-02-16] MEDS: INSULIN REGULAR, HUMAN 300 UNIT/3 ML VIAL SQ PRN ×3 (11:43→20:44)
[2021-02-16] MEDS: PIPERACILLIN SODIUM/TAZOBACTAM 3.375 G in IV DEXTROSE 5% 50 ML IV SCH ×2 (16:00→16:05)
[2021-02-16 16:23] VITALS: BP 163/64
[2021-02-16] MEDS ORDERED: VANCOMYCIN IV 750 MG in IV DEXTROSE 5% 250 ML IV SCH (17:00)
--- NOTE | 2021-02-16 18:12 | NUR ---
patient in bed awake and alert. no complains of any SOB, pain or discomfort at this time. sitter at bedside. safety precautions in place. routine medication provided. awaiting picc line nurse. will report to oncoming shift.
--- NOTE | 2021-02-16 19:02 | NUR ---
1600 zosyn unable to give due to picc line not patent. awaiting picc line nurse, will be here at 10pm.
--- NOTE | 2021-02-16 20:00 | NUR ---
RECEIVED PATIENT AWAKE IN BED WITH SITTER AT BEDSIDE. PATIENT IS A/O X3, STATING THAT HE IS LEAVING AT 2200. PATIENT RE-INFORMED THAT THE PICC LINE NURSE WAS COMING AT 2200 TO RE-INSERT NEW PICC LINE SO ANTIBIOTICS CAN BE ADMINISTERED. PATIENT IS VERY AGITATED AND VERBALLY AGGRESSIVE TOWARDS STAFF, STATING THAT HE DOESN'T REMEMBER ANYONE TELLING HIM ABOUT A PICC LINE. SITTER AT BEDSIDE. WILL CONTINUE TO MONITOR AND CLOSELY ASSESS.
[2021-02-16 20:15] VITALS: BP 183/67
[2021-02-16] MEDS: ATORVASTATIN 20 MG TABLET PO SCH (20:44)
--- NOTE | 2021-02-16 20:45 | NUR ---
PATIENT AWAKE IN BED. LABILE MOOD NOTED. PATIENT APPEARS IN GOOD SPIRITS AND IS BEING COOPERATIVE WITH CARE AND MEDS. PATIENT VERBALIZED UNDERSTANDING THAT PICC LINE NURSE WILL BE HERE AT 2200. SITTER AT BEDSIDE. WILL CONTINUE TO MONITOR AND ASSESS.
[2021-02-16 21:00] VITALS: BP 163/65
[2021-02-16] MEDS ORDERED: CLONIDINE HCL 0.1 MG TABLET PO PRN (21:15)
--- NOTE | 2021-02-16 22:31 | NUR ---
PATIENT ASLEEP IN BED. SITTER AT BEDSIDE. WAITING FOR PICC LINE NURSE TO ARRIVE FOR INSERTION. CALLED OUT TO SURYA, NURSING INSOLE PRESSER AND SHE CALLED ANNA, SAID HE IS RUNNING A LITTLE BEHIND, BUT WILL BE HERE BY MIDNIGHT. ALL NEEDS ATTENDED.
--- NOTE | 2021-02-17 01:00 | NUR ---
PATIENT ASLEEP IN BED. SITTER AT BEDSIDE. WAITING FOR PICC LINE NURSE. NURSING RAMP LEAD MADE AWARE.
--- NOTE | 2021-02-17 02:34 | NUR ---
NARESH CASTILLO AT BEDSIDE TO INSERT PICC LINE. CONSENT SIGNED.
[2021-02-17] MEDS: PIPERACILLIN SODIUM/TAZOBACTAM 3.375 G in IV DEXTROSE 5% 50 ML IV SCH ×4 (02:38→21:23)
--- NOTE | 2021-02-17 02:58 | NUR ---
PICC LINE INSERTED TO LEFT UPPER ARM. STAT CHEST X-RAY ORDERED FOR PLACEMENT.
[2021-02-17 06:17] VITALS: BP 144/50
[2021-02-17] MEDS: LEVOTHYROXINE SODIUM 100 MCG TABLET PO SCH (06:22)
[2021-02-17] MEDS: BLOOD SUGAR DIAGNOSTIC 1 EACH STRIP VI SCH ×4 (06:44→21:00)
[2021-02-17] MEDS: INSULIN REGULAR, HUMAN 300 UNIT/3 ML VIAL SQ PRN ×3 (07:50→16:59)
[2021-02-17 08:00] VITALS: BP 154/67
[2021-02-17] MEDS: ARIPIPRAZOLE 10 MG TABLET PO SCH (08:23)
[2021-02-17] MEDS: buPROPion XL 150 MG TAB.SR.24H PO SCH (08:23)
[2021-02-17] MEDS: ASPIRIN 81 MG TAB.CHEW PO SCH (08:23)
[2021-02-17] MEDS: hydrALAZINE HCL 25 MG TABLET PO SCH ×2 (08:23→16:59)
[2021-02-17] MEDS: MULTIVITAMINS,THERAPEUTIC TABLET PO SCH (08:23)
[2021-02-17] MEDS: CLOPIDOGREL 75 MG TABLET PO SCH (08:23)
[2021-02-17] MEDS: HEPARIN SODIUM,PORCINE 5,000 UNITS/ML VIAL SQ SCH ×2 (08:25→21:00)
[2021-02-17] MEDS: FAMOTIDINE 20 MG TABLET PO SCH (08:29)
[2021-02-17 09:46] LABS: HEMATOCRIT 30.4 % (36.7-47.1); PLATELET COUNT (AUTO) 336 K/uL (152-348)
[2021-02-17 10:01] LABS: CREATININE 1.7 mg/dL (0.6-1.3); POTASSIUM 3.7 mmol/L (3.5-5.1)
[2021-02-17 10:22] LABS: MAGNESIUM 2.2 mg/dL (1.8-2.4); PHOSPHOROUS 2.7 mg/dL (2.5-4.9)
[2021-02-17 12:00] VITALS: BP 138/72
[2021-02-17 16:00] VITALS: BP 157/59
[2021-02-17] MEDS: VANCOMYCIN IV 750 MG in IV DEXTROSE 5% 250 ML IV SCH (16:36)
[2021-02-17 19:59] VITALS: BP 107/63
[2021-02-17] MEDS: ATORVASTATIN 20 MG TABLET PO SCH (21:00)
[2021-02-18] MEDS: VANCOMYCIN IV 750 MG in IV DEXTROSE 5% 250 ML IV SCH ×2 (03:29→05:06)
[2021-02-18 04:00] VITALS: BP 151/65
[2021-02-18] MEDS: PIPERACILLIN SODIUM/TAZOBACTAM 3.375 G in IV DEXTROSE 5% 50 ML IV SCH (04:22)
[2021-02-18 04:45] LABS: POTASSIUM 3.7 mmol/L (3.5-5.1)
--- NOTE | 2021-02-18 05:07 | NUR ---
Ashly held because trough was greater than 20
[2021-02-18 05:09] LABS: PHOSPHOROUS 3.8 mg/dL (2.5-4.9)
--- NOTE | 2021-02-18 05:09 | NUR ---
Pt slept intermittently throughout the night. Denies chest pain or SOB. Refused medications at beginning of shift and refused to let this nurse check blood sugar. Sitter at bedside. Safety and comfort provided. No other issues or concerns at this time, will endorse to day shift.
[2021-02-18 05:13] LABS: HEMATOCRIT 30.9 % (36.7-47.1); MEAN CORPUSCULAR HEMOGLOBIN 29.7 uug (23.8-33.4); MEAN CORPUSCULAR VOLUME 90.6 fL (73.0-96.2); PLATELET COUNT (AUTO) 382 K/uL (152-348)
[2021-02-18] MEDS: LEVOTHYROXINE SODIUM 100 MCG TABLET PO SCH (06:32)
[2021-02-18] MEDS: BLOOD SUGAR DIAGNOSTIC 1 EACH STRIP VI SCH ×4 (06:42→20:36)
[2021-02-18] MEDS: INSULIN REGULAR, HUMAN 300 UNIT/3 ML VIAL SQ PRN ×3 (07:54→20:38)
[2021-02-18] MEDS: HEPARIN SODIUM,PORCINE 5,000 UNITS/ML VIAL SQ SCH ×2 (08:06→20:14)
[2021-02-18] MEDS: FAMOTIDINE 20 MG TABLET PO SCH (08:13)
[2021-02-18] MEDS: hydrALAZINE HCL 25 MG TABLET PO SCH ×2 (08:13→20:13)
[2021-02-18] MEDS: buPROPion XL 150 MG TAB.SR.24H PO SCH (08:13)
[2021-02-18] MEDS: MULTIVITAMINS,THERAPEUTIC TABLET PO SCH (08:13)
[2021-02-18] MEDS: ASPIRIN 81 MG TAB.CHEW PO SCH (08:13)
[2021-02-18] MEDS: ARIPIPRAZOLE 10 MG TABLET PO SCH (08:13)
[2021-02-18] MEDS: CLOPIDOGREL 75 MG TABLET PO SCH (08:14)
[2021-02-18 08:21] VITALS: BP 154/61
[2021-02-18] MEDS: CEFEPIME HCL 2 G in IV DEXTROSE 5% 100 ML IV SCH (09:31)
[2021-02-18] MEDS: ACETAMINOPHEN 325 MG TABLET PO PRN (09:43)
[2021-02-18] MEDS ORDERED: DEXTROSE 50% 50 ML DISP.SYRIN IV PRN (11:00)
[2021-02-18] MEDS ORDERED: INSULIN REGULAR, HUMAN 300 UNITS/3 ML VIAL SQ PRN (11:00)
[2021-02-18] MEDS ORDERED: IV 1/2NS 1000 ML 1,000 ML IV PRN (15:45)
[2021-02-18 16:00] VITALS: BP 140/66
[2021-02-18 20:00] VITALS: BP 160/71
[2021-02-18] MEDS: ATORVASTATIN 20 MG TABLET PO SCH (20:13)
[2021-02-18] MEDS: INSULIN GLARGINE,HUM 300 UNITS/3 ML CARTRIDGE SQ SCH (20:39)
[2021-02-18 23:15] LABS: *BILIRUBIN,URIN NEGATIVE (NEGATIVE); *CLARITY,URINE CLEAR (CLEAR); *COLOR,URINE YELLOW (YELLOW); *KETONES,URINE NEGATIVE (NEGATIVE); *UROBILINOGEN,URINE 0.2 E.U./dl (NORMAL); LEUKOCYTE ESTERASE ,URINE NEGATIVE (NEGATIVE); NITRITE, URINE NEGATIVE (NEGATIVE); PH,URINE 5.5 (5.0-8.0); UGLUCOSE 2+ (NEGATIVE)
[2021-02-18 23:36] LABS: *BLOOD, URINE TRACE (NEGATIVE); *CREATININE,URINE 84.7 mg/dL (30-125); *URINE TOTAL PROTEIN RANDOM 163.3 mg/dL (<150/24HR)
[2021-02-18 23:37] LABS: BACTERIA,URINE NONE SEEN /HPF (NONE SEEN); SQUAMOUS EPITHELIAL CELL,UR NONE SEEN /HPF (NONE SEEN); WBC,URINE NONE SEEN /HPF (0-3)
[2021-02-18 23:38] LABS: RED BLOOD CELL CASTS,URINE 0-3 /LPF (NONE SEEN)
[2021-02-19 04:05] VITALS: BP 122/62
[2021-02-19] MEDS: LEVOTHYROXINE SODIUM 100 MCG TABLET PO SCH (06:03)
[2021-02-19] MEDS: BLOOD SUGAR DIAGNOSTIC 1 EACH STRIP VI SCH ×4 (06:24→21:49)
[2021-02-19 06:30] LABS: HEMATOCRIT 29.7 % (36.7-47.1); MEAN CORPUSCULAR HEMOGLOBIN 30.3 uug (23.8-33.4); MEAN CORPUSCULAR VOLUME 90.5 fL (73.0-96.2); PLATELET COUNT (AUTO) 359 K/uL (152-348)
[2021-02-19 06:48] LABS: CREATININE 1.6 mg/dL (0.6-1.3); MAGNESIUM 2.1 mg/dL (1.8-2.4); PHOSPHOROUS 4.2 mg/dL (2.5-4.9); POTASSIUM 3.9 mmol/L (3.5-5.1)
--- NOTE | 2021-02-19 07:30 | NUR ---
RECEIVED AWAKE IN BED WATCHING TV. NO ACUTE DISTRESS. DENIES PAIN AT THIS TIME. IV INTACT. SITTER AT BEDSIDE. BED IS LOW AND LOCKED. CALL LIGHT WITHIN REACH. WILL CONTINUE TO MONITOR.
[2021-02-19] MEDS: INSULIN REGULAR, HUMAN 300 UNIT/3 ML VIAL SQ PRN ×4 (08:00→21:52)
[2021-02-19] MEDS: ASPIRIN 81 MG TAB.CHEW PO SCH (08:18)
[2021-02-19] MEDS: CLOPIDOGREL 75 MG TABLET PO SCH (08:18)
[2021-02-19] MEDS: hydrALAZINE HCL 25 MG TABLET PO SCH ×2 (08:18→21:42)
[2021-02-19] MEDS: FAMOTIDINE 20 MG TABLET PO SCH (08:18)
[2021-02-19] MEDS: ARIPIPRAZOLE 10 MG TABLET PO SCH (08:18)
[2021-02-19] MEDS: buPROPion XL 150 MG TAB.SR.24H PO SCH (08:18)
[2021-02-19] MEDS: MULTIVITAMINS,THERAPEUTIC TABLET PO SCH (08:19)
[2021-02-19] MEDS: HEPARIN SODIUM,PORCINE 5,000 UNITS/ML VIAL SQ SCH ×2 (08:20→21:51)
[2021-02-19] MEDS ORDERED: VANCOMYCIN IV 750 MG in IV DEXTROSE 5% 250 ML IV ONE (09:00)
[2021-02-19] MEDS: CEFEPIME HCL 2 G in IV DEXTROSE 5% 100 ML IV SCH ×2 (10:50→21:40)
[2021-02-19] MEDS: OXYCODONE HCL 5 MG TABLET PO PRN ×2 (11:08→18:17)
--- NOTE | 2021-02-19 11:15 | NUR ---
[facility] Hearing: Patient had 5250 probable cause hearing today and it was upheld for grave disability. Patient was present during his hearing.
[2021-02-19 11:41] VITALS: BP 155/67
--- NOTE | 2021-02-19 11:59 | NUR ---
DR. RODRIGUEZ MADE AWARE OF BS 444 MG/DL. INSULIN GIVEN ORDERED. NO S/SX OF HYPERGLYCEMIA NOTED. WILL CONTINUE TO MONITOR.
[2021-02-19 15:27] VITALS: BP 145/70
--- NOTE | 2021-02-19 18:47 | NUR ---
ALERT AND ORIENTED X4. NO ACUTE DISTRESS. ON IV ATB NO ADVERSE REACTION NOTED. TOMMIE PICC LINE INTACT AND PATENT. NO SUICIDAL IDEATIONS NOTED. SITTER AT BEDSIDE. NEEDS ATTENDED. WILL CONTINUE TO MONITOR.
[2021-02-19 20:18] VITALS: BP 159/70
[2021-02-19] MEDS: ATORVASTATIN 20 MG TABLET PO SCH (21:41)
[2021-02-19] MEDS: INSULIN GLARGINE,HUM 300 UNITS/3 ML CARTRIDGE SQ SCH (21:52)
[2021-02-20] MEDS: OXYCODONE HCL 5 MG TABLET PO PRN ×4 (00:08→20:34)
[2021-02-20] MEDS: LEVOTHYROXINE SODIUM 100 MCG TABLET PO SCH (06:00)
[2021-02-20 07:18] LABS: HEMATOCRIT 29.9 % (36.7-47.1); MEAN CORPUSCULAR HEMOGLOBIN 29.2 uug (23.8-33.4); MEAN CORPUSCULAR VOLUME 90.4 fL (73.0-96.2); PLATELET COUNT (AUTO) 339 K/uL (152-348)
[2021-02-20 07:30] VITALS: BP 115/73
--- NOTE | 2021-02-20 07:30 | NUR ---
RECEIVED AWAKE WATCHING TV. NO RESPIRATORY DISTRESS. TOMMIE PICC LINE INTACT. DENIES PAIN AT THIS TIME. NO SI. SITTER AT BEDSIDE. NEEDS ATTENDED. KEPT COMFORTABLE. WILL CONTINUE TO MONITOR.
[2021-02-20] MEDS: BLOOD SUGAR DIAGNOSTIC 1 EACH STRIP VI SCH ×4 (07:31→20:52)
[2021-02-20 07:53] LABS: CREATININE 1.5 mg/dL (0.6-1.3); PHOSPHOROUS 3.7 mg/dL (2.5-4.9); POTASSIUM 3.8 mmol/L (3.5-5.1); VANCOMYCIN,RANDOM 13.9 ug/mL (18.0-26.0)
[2021-02-20] MEDS: INSULIN REGULAR, HUMAN 300 UNIT/3 ML VIAL SQ PRN ×3 (08:41→16:19)
[2021-02-20] MEDS: buPROPion XL 150 MG TAB.SR.24H PO SCH (08:42)
[2021-02-20] MEDS: ASPIRIN 81 MG TAB.CHEW PO SCH (08:43)
[2021-02-20] MEDS: CLOPIDOGREL 75 MG TABLET PO SCH (08:43)
[2021-02-20] MEDS: FAMOTIDINE 20 MG TABLET PO SCH (08:43)
[2021-02-20] MEDS: HEPARIN SODIUM,PORCINE 5,000 UNITS/ML VIAL SQ SCH ×2 (08:43→20:36)
[2021-02-20] MEDS: ARIPIPRAZOLE 10 MG TABLET PO SCH (08:43)
[2021-02-20] MEDS: hydrALAZINE HCL 25 MG TABLET PO SCH ×2 (08:46→20:33)
[2021-02-20] MEDS ORDERED: VANCOMYCIN IV 750 MG in IV DEXTROSE 5% 250 ML IV ONE (09:00)
[2021-02-20] MEDS: MULTIVITAMINS,THERAPEUTIC TABLET PO SCH (09:02)
[2021-02-20] MEDS: CEFEPIME HCL 2 G in IV DEXTROSE 5% 100 ML IV SCH ×2 (10:26→20:32)
[2021-02-20 12:00] VITALS: BP 135/70
--- NOTE | 2021-02-20 13:50 | NUR ---
seen by Dr Dalal
--- NOTE | 2021-02-20 13:50 | NUR ---
SEEN BY DR. YAP. PER DR. YAP CALL HIM TO DC 5250 HOLD ONCE PATIENT IS MEDICALLY CLEARED FOR DC. WILL ENDORSE ACCORDINGLY.
[2021-02-20 16:00] VITALS: BP 157/67
--- NOTE | 2021-02-20 18:55 | NUR ---
ALERT AND ORIENTED X4. NO ACUTE DISTRESS. IV INTACT. ON IV ATB NO ADVERSE REACTION NOTED. SITTER AT BEDSIDE. NO SI. SAFETY MEASURES IN PLACE. KEPT COMFORTABLE. NEEDS ATTENDED.
[2021-02-20 20:00] VITALS: BP 145/65
[2021-02-20] MEDS: ATORVASTATIN 20 MG TABLET PO SCH (20:33)
[2021-02-20] MEDS: INSULIN GLARGINE,HUM 300 UNITS/3 ML CARTRIDGE SQ SCH (20:55)
--- NOTE | 2021-02-20 21:00 | NUR ---
Rcvd pt. A/O x 4. In no acute distress. IV PICC line on the BRAD, patent and intact. Safety initiated. Call light within reach. Will continue to monitor.
--- NOTE | 2021-02-20 23:50 | NUR ---
hands off report received from Morena ALEGRIA. Pt in no acute distress. Pt had 1:1 sitter for safety. Pt iv intact. safety and comfort provided. Will continue to monitor.
[2021-02-21 04:00] VITALS: BP 149/53
--- NOTE | 2021-02-21 05:24 | NUR ---
PT IN NO ACUTE DISTRESS. SITTER AT BEDSIDE FOR SAFETY. PT IN NO ACUTE DISTRESS. PRESCRIBED MEDICATION GIVEN AND PT TOLERATED IT WELL. SAFETY AND COMFORT PROVIDED. ALL NEEDS ARE MET. WILL ENDORSE TO INCOMING NURSE FOR CONTINUITY OF CARE.
[2021-02-21] MEDS: LEVOTHYROXINE SODIUM 100 MCG TABLET PO SCH (06:07)
--- NOTE | 2021-02-21 06:14 | NUR ---
PT REFUSED HIS ACCUCHECK. HE STATED :"AGAIN, THE PSYCHOSOCIAL REHABILITATION COUNSELOR JUST GET MY BLOOD." PT IN NO ACUTE DISTRESS. PT REFUSED HIS IV. WILL ENDORSE TO INCOMING NURSE FOR CONTINUITY OF CARE.
[2021-02-21 06:29] LABS: HEMATOCRIT 30.2 % (36.7-47.1); MEAN CORPUSCULAR HEMOGLOBIN 29.4 uug (23.8-33.4); MEAN CORPUSCULAR VOLUME 90.3 fL (73.0-96.2); PLATELET COUNT (AUTO) 328 K/uL (152-348)
[2021-02-21] MEDS: BLOOD SUGAR DIAGNOSTIC 1 EACH STRIP VI SCH ×2 (06:34→11:47)
[2021-02-21 07:09] LABS: CREATININE 1.6 mg/dL (0.6-1.3); MAGNESIUM 1.8 mg/dL (1.8-2.4); PHOSPHOROUS 3.8 mg/dL (2.5-4.9); POTASSIUM 3.9 mmol/L (3.5-5.1); VANCOMYCIN,RANDOM 13.6 ug/mL (18.0-26.0)
--- NOTE | 2021-02-21 07:30 | NUR ---
Patient received in bed with eyes closed, but easily arousable, alert and oriented x4. Patient on RA with no SOB or difficulties breathing. No acute distress noted. Left UA PICC line is intact and patent. Sitter at bedside for safety. Call light within easy reach. Will continue to monitor.
[2021-02-21] MEDS: CEFEPIME HCL 2 G in IV DEXTROSE 5% 100 ML IV SCH (08:55)
[2021-02-21] MEDS: OXYCODONE HCL 5 MG TABLET PO PRN (08:56)
[2021-02-21] MEDS: ASPIRIN 81 MG TAB.CHEW PO SCH (08:56)
[2021-02-21] MEDS: HEPARIN SODIUM,PORCINE 5,000 UNITS/ML VIAL SQ SCH (08:57)
[2021-02-21 08:59] VITALS: BP 145/65
[2021-02-21] MEDS: FAMOTIDINE 20 MG TABLET PO SCH (08:59)
[2021-02-21] MEDS: ARIPIPRAZOLE 10 MG TABLET PO SCH (08:59)
[2021-02-21] MEDS: hydrALAZINE HCL 25 MG TABLET PO SCH (08:59)
[2021-02-21] MEDS: INSULIN REGULAR, HUMAN 300 UNIT/3 ML VIAL SQ PRN ×2 (08:59→12:16)
[2021-02-21] MEDS: CLOPIDOGREL 75 MG TABLET PO SCH (08:59)
[2021-02-21] MEDS: buPROPion XL 150 MG TAB.SR.24H PO SCH (08:59)
[2021-02-21] MEDS: MULTIVITAMINS,THERAPEUTIC TABLET PO SCH (08:59)
--- NOTE | 2021-02-21 10:30 | NUR ---
PER DR. YAP, JUAN MANUEL TO D/C 14 DAY HOLD. PT WILL BE DISCHARGED BACK TO [facility] TODAY.
[2021-02-21] MEDS ORDERED: CEFE2FRO IV (12:41)
[2021-02-21] MEDS ORDERED: BUPR-96 PO (12:41)
[2021-02-21] MEDS ORDERED: ARIP10TA9 PO (12:41)
--- NOTE | 2021-02-21 12:45 | NUR ---
Patient refuses pictures for his right foot at this time. States that the doctor changed his dressing this morning and he does not want me to undo it.
--- NOTE | 2021-02-21 13:15 | NUR ---
Ambulance is here to transport patient back to [facility]. Report given to AIRAM Dickson at [facility]. Hold was D/C'ed earlier this morning by Dr. Dalal. Patient discharged in satisfactory condition with all his personal belongings.
[2021-02-21] MEDS ORDERED: VANCOMYCIN IV 1,000 MG in IV DEXTROSE 5% 250 ML IV SCH (14:00)
[2021-02-21] MEDS ORDERED: MINERAL OIL/PETROLATUM,WHITE 57 GM TUBE TOP PRN (15:30)
[2021-02-21 16:58] LABS: M-SPIKE Not Observed
[2021-02-21 17:01] LABS: ALBUMIN 3.6; ALPHA-1-GLOBULIN 0.3; ALPHA-2-GLOBULIN 1.1 High
[2021-02-21 17:02] LABS: A/G RATIO 0.9; BETA GLOBULIN 1.1; GAMMA GLOBULIN 1.7; GLOBULIN, TOTAL 4.1 High
== END 2021-02-21 13:30 | DRG 682 ==
LOC: ER 23:52 → TRANSITION 02-14 17:42 → MEDSURG3 02-14 18:22
PROVIDERS: ADMIT Nurse Practitioner Acute Care; ATTEND Internal Medicine
PROC: 02HV33Z Insertion of Infusion Device into Superior Vena Cava, Percutaneous Approach (ICD-10-PCS; principal; 2021-02-17)
PROC: B548ZZA Ultrasonography of Superior Vena Cava, Guidance (ICD-10-PCS; 2021-02-17)
DX: N17.0 Acute kidney failure with tubular necrosis (principal); I21.A1 Myocardial infarction type 2; G93.41 Metabolic encephalopathy; E43 Unspecified severe protein-calorie malnutrition; L03.115 Cellulitis of right lower limb; D68.59 Other primary thrombophilia; M86.671 Other chronic osteomyelitis, right ankle and foot; R45.851 Suicidal ideations; F31.5 Bipolar disorder, current episode depressed, severe, with psychotic features; E11.69 Type 2 diabetes mellitus with other specified complication; E11.51 Type 2 diabetes mellitus with diabetic peripheral angiopathy without gangrene; E03.9 Hypothyroidism, unspecified; Z89.421 Acquired absence of other right toe(s); Z79.4 Long term (current) use of insulin; Z79.02 Long term (current) use of antithrombotics/antiplatelets; E11.22 Type 2 diabetes mellitus with diabetic chronic kidney disease; I12.9 Hypertensive chronic kidney disease with stage 1 through stage 4 chronic kidney disease, or unspecified chronic kidney disease; N18.30 Chronic kidney disease, stage 3 unspecified; B96.5 Pseudomonas (aeruginosa) (mallei) (pseudomallei) as the cause of diseases classified elsewhere; B95.62 Methicillin resistant Staphylococcus aureus infection as the cause of diseases classified elsewhere; N18.4 Chronic kidney disease, stage 4 (severe); Z89.439 Acquired absence of unspecified foot; Z79.890 Hormone replacement therapy; Z86.73 Personal history of transient ischemic attack (TIA), and cerebral infarction without residual deficits; Z79.899 Other long term (current) drug therapy; F20.9 Schizophrenia, unspecified; E11.621 Type 2 diabetes mellitus with foot ulcer; L97.519 Non-pressure chronic ulcer of other part of right foot with unspecified severity; G89.4 Chronic pain syndrome; J44.9 Chronic obstructive pulmonary disease, unspecified; M48.00 Spinal stenosis, site unspecified; E86.0 Dehydration; E78.5 Hyperlipidemia, unspecified; F03.90 Unspecified dementia, unspecified severity, without behavioral disturbance, psychotic disturbance, mood disturbance, and anxiety; E11.42 Type 2 diabetes mellitus with diabetic polyneuropathy; D64.9 Anemia, unspecified; Z91.19 Patient's noncompliance with other medical treatment and regimen; Z20.822 Contact with and (suspected) exposure to COVID-19; R00.1 Bradycardia, unspecified; D63.8 Anemia in other chronic diseases classified elsewhere; E11.65 Type 2 diabetes mellitus with hyperglycemia; F17.210 Nicotine dependence, cigarettes, uncomplicated; Z89.431 Acquired absence of right foot; Z74.09 Other reduced mobility; Z91.14 Patient's other noncompliance with medication regimen
CPT/HCPCS: 36415; 70030-TC; 71045; 83550; 83735; 83970; 84100; 84155; 84156; 84165; 84300; 84443; 85025; 93005; A4663; A6209; G0378; G0480; J0692; J1200; J1630; J1644; J1815; J2060; J2543; J3370; J3490; J7050; J7060

== ENCOUNTER 2022-12-07 18:55 | Inpatient (IN) | payer MEDICARE, OTHER ==
[~2022-12-07] VITALS: Ht 172.7 cm; Wt 82.1 kg
[~2022-12-07 18:55] MED LIST changes: +ARIP10TA9 PO; +ASPI81TA31 PO; +BUPR-96 PO; +CEFE2FRO IV; +CLOP75TA15 PO; +FERR325T28 PO; +INSU100V SUBCUT; -INSU100V28; -INSU100V28 SQ; +LEVO100T10 PO; -LEVO137T2 PO; -LIRA0.6P2 SQ; +METH-807 PO; -METH750T3 PO; +MULT-594 PO; -NALO4SPR NS; -NIFE-34 PO; +NIFE30TA91 PO
[2022-12-07] MEDS ORDERED: IV NORMAL SALINE 500 ML BAG IV ONE (19:15)
[2022-12-07 19:28] LABS: HEMATOCRIT 29.6 % (36.7-47.1); MEAN CORPUSCULAR HEMOGLOBIN 29.6 uug (23.8-33.4); MEAN CORPUSCULAR VOLUME 89.8 fL (73.0-96.2); PLATELET COUNT (AUTO) 349 K/uL (152-348)
--- NOTE | 2022-12-07 19:31 | NUR ---
Xray at bedside.
[2022-12-07 19:39] LABS: CREATININE 2.6 mg/dL (0.6-1.3)
--- NOTE | 2022-12-07 19:40 | NUR ---
MRSA and UA sent to lab.
[2022-12-07 19:51] LABS: BILIRUBIN,TOTAL 0.2 mg/dL (0.2-1.0); TOTAL PROTEIN, SERUM 7.8 g/dL (6.4-8.2)
[2022-12-07 20:05] LABS: *BILIRUBIN,URIN NEGATIVE (NEGATIVE); *BLOOD, URINE 2+ (NEGATIVE); *COLOR,URINE YELLOW (YELLOW); *KETONES,URINE NEGATIVE (NEGATIVE); *UROBILINOGEN,URINE 0.2 E.U./dl (NORMAL); LEUKOCYTE ESTERASE ,URINE 1+ (NEGATIVE); NITRITE, URINE POSITIVE (NEGATIVE); PH,URINE 5.5 (5.0-8.0)
[2022-12-07 20:06] LABS: UGLUCOSE 2+ (NEGATIVE)
[2022-12-07 20:07] LABS: *CLARITY,URINE SLIGHTLY CLOUDY (CLEAR)
[2022-12-07] MEDS ORDERED: SENN-18 PO (20:18)
[2022-12-07] MEDS ORDERED: ALBU8.5H8 IH (20:18)
[2022-12-07] MEDS ORDERED: PETR113O TP (20:18)
[2022-12-07] MEDS ORDERED: CLOP75TA15 PO (20:18)
[2022-12-07] MEDS ORDERED: GABA600T12 PO (20:18)
[2022-12-07] MEDS ORDERED: ARIP10TA9 PO (20:18)
[2022-12-07] MEDS ORDERED: CRAN450T9 PO (20:18)
[2022-12-07] MEDS ORDERED: TAMS-3 PO (20:18)
[2022-12-07] MEDS ORDERED: AMIN30LI2 PO (20:18)
[2022-12-07] MEDS ORDERED: HYDR-3972 PO (20:18)
[2022-12-07] MEDS ORDERED: EMPA25TA PO (20:18)
[2022-12-07] MEDS ORDERED: INSU100V11 SUBCUT (20:18)
[2022-12-07] MEDS ORDERED: MULT-213 PO (20:18)
[2022-12-07] MEDS ORDERED: BUPR100T5 PO (20:18)
[2022-12-07] MEDS ORDERED: OMEG-49 PO (20:18)
[2022-12-07] MEDS ORDERED: KETO120S5 TP (20:18)
[2022-12-07] MEDS ORDERED: ATOR20TA PO (20:18)
[2022-12-07] MEDS ORDERED: DULA0.75 SQ (20:18)
[2022-12-07] MEDS ORDERED: CHOL400C5 PO (20:18)
[2022-12-07] MEDS ORDERED: ISOS60TA72 PO (20:18)
[2022-12-07] MEDS ORDERED: BENZ1TAB7 PO (20:18)
[2022-12-07 20:21] LABS: RBC,URINE 20-50 /HPF (0-3)
[2022-12-07 20:22] LABS: BACTERIA,URINE MA /HPF (NONE SEEN); SQUAMOUS EPITHELIAL CELL,UR NONE SEEN /HPF (NONE SEEN); YEAST,URINE MANY /HPF (NONE SEEN)
--- NOTE | 2022-12-07 20:30 | NUR ---
Patient taken to CT via gurkaitlynn accompanied by
--- NOTE | 2022-12-07 21:00 | NUR ---
Patient confused, agitated, and aggressive towards staff. Attempting to get out bed without help. Patient stating "I need to go back to the hotel and get my kids". Attempted to reorient patient, unsuccessful. Patient at high risk for falls due to generalized weakness. Dr. Robbins notified.
[2022-12-07] MEDS ORDERED: MIDAZOLAM HCL 2 MG/2 ML VIAL ONE ×2 (21:03→21:06)
[2022-12-07] MEDS ORDERED: HALOPERIDOL LACTATE 5 MG/1 ML VIAL ONE (21:03)
--- NOTE | 2022-12-07 21:05 | NUR ---
Per Dr. Robbins's order, patient to receive Versed 4mg IM and Haldol 5mg IM for confusion and agitation.
--- NOTE | 2022-12-07 21:10 | NUR ---
Note amayaone in EDM - 12/07/22 at 2341 by DAVI Patient confused, agitated, and aggressive towards staff. Attempting to get out bed without help. Patient stating "I need to go back to the hotel and get my kids". Attempted to reorient patient, unsuccessful. Patient at high risk for falls due to generalized weakness. Dr. Robbins notified.
[2022-12-07] MEDS ORDERED: HALOPERIDOL LACTATE 5 MG/1 ML VIAL IM ONE (21:15)
[2022-12-07] MEDS ORDERED: MIDAZOLAM HCL 2 MG/2 ML VIAL IM ONE ×2 (21:15)
--- NOTE | 2022-12-07 21:15 | NUR ---
Uriah mccarthy called due to patient aggresion, confusion and verbally threating staff. Per Dr. Robbins, patient to be placed in 4 point hard restraint for patient safety.
[2022-12-07] MEDS ORDERED: KETAMINE HCL 200 MG/20 ML VIAL ONE (21:44)
[2022-12-07] MEDS ORDERED: KETAMINE HCL 500 MG/10 ML INJ IV ONE ×2 (21:45→22:15)
--- NOTE | 2022-12-07 21:50 | NUR ---
Ketamine 100mg ordered for agitation and confusion per Dr. Robbins. Medication administered by Dr. Robbins.
--- NOTE | 2022-12-07 22:41 | NUR ---
Called third floor to request TELE bed spoke with Chaitanya Nam RN, waiting for bed assignment.
--- NOTE | 2022-12-07 22:47 | NUR ---
Ketamine 100mg wasted, bailiffAIRAM sarmiento.
[2022-12-07] MEDS ORDERED: INSULIN REGULAR, HUMAN 300 UNIT/3 ML VIAL SQ PRN (23:00)
[2022-12-07] MEDS ORDERED: CEFTRIAXONE 1 G in IV DEXTROSE 5% 50 ML IV SCH (23:00)
[2022-12-07] MEDS ORDERED: DEXTROSE 50% 50 ML DISP.SYRIN IV PRN (23:00)
[2022-12-07] MEDS ORDERED: HYDROCODONE/APAP 5-325MG TABLET PO PRN (23:00)
[2022-12-07] MEDS ORDERED: ONDANSETRON 4 MG/2 ML VIAL IV PRN (23:00)
[2022-12-07] MEDS ORDERED: LORAZEPAM 2 MG/1 ML VIAL IV PRN (23:00)
[2022-12-07] MEDS ORDERED: MAGNESIUM HYDROXIDE 30 ML LIQUID UDC PO PRN (23:00)
[2022-12-07] MEDS ORDERED: ACETAMINOPHEN 325 MG TABLET PO PRN (23:00)
[2022-12-07] MEDS ORDERED: REMEDY ESSENTIAL ZINC PASTE 113 GM TP PRN (23:00)
[2022-12-07] MEDS ORDERED: TEMAZEPAM 15 MG CAPSULE PO PRN (23:00)
--- NOTE | 2022-12-07 23:00 | NUR ---
Per third floor nurse, no TELE beds. Patient to stay in ER until bed avaliable in the morning. ER charting will be performed.
[2022-12-08] MEDS: IV NORMAL SALINE 500 ML BAG IV ONE ×2 (00:05→01:00)
[2022-12-08] MEDS: LORAZEPAM 2 MG/1 ML VIAL IV ONE ×2 (00:05→01:00)
[2022-12-08] MEDS ORDERED: LORAZEPAM 2 MG/1 ML VIAL ONE (00:58)
--- NOTE | 2022-12-08 01:15 | NUR ---
Patient becoming restless, agitated and attempting to get out of bed. electrocardiograph technician unable to draw Troponin. Dr. Robbins aware, awaiting for additional order.
[2022-12-08] MEDS ORDERED: KETAMINE HCL 200 MG/20 ML VIAL ONE (01:21)
--- NOTE | 2022-12-08 01:21 | NUR ---
Ketamine 100mg IV administered by Dr. Robbins for agitation.
--- NOTE | 2022-12-08 01:30 | NUR ---
Emptied 1000ml of yellow urine.
[2022-12-08] MEDS ORDERED: CEFTRIAXONE 1 G in IV DEXTROSE 5% 50 ML IV ONE (02:45)
[2022-12-08] MEDS ORDERED: CEFTRIAXONE /D5W 50ML IVPB **ER PYXIS IV ONE (02:58)
--- NOTE | 2022-12-08 04:30 | NUR ---
Patient sleeping comfortably in bed, no signs of distress noted.
--- NOTE | 2022-12-08 05:04 | NUR ---
Admitting order for Rocephin 1g IV order placed by Narciso INFANTE not given at 23:00 due to patient holding in ER. Rocephin 1g IV order administered at 03:[address] Robbins.
[2022-12-08] MEDS: IV NS 1000 ML 1,000 ML IV PRN (05:15)
--- NOTE | 2022-12-08 06:35 | NUR ---
Ketamine 100mg wasted. Blair ALEGRIA witness.
[2022-12-08 06:48] LABS: MEAN CORPUSCULAR HEMOGLOBIN 29.7 uug (23.8-33.4); MEAN CORPUSCULAR VOLUME 90.7 fL (73.0-96.2); PLATELET COUNT (AUTO) 341 K/uL (152-348)
[2022-12-08] MEDS ORDERED: PANTOPRAZOLE SODIUM 40 MG TABLET.DR PO SCH (07:00)
--- NOTE | 2022-12-08 07:05 | NUR ---
Report given to Melvin ALEGRIA.
[2022-12-08 07:23] LABS: PHOSPHOROUS 2.8 mg/dL (2.5-4.9); POTASSIUM 4.1 mmol/L (3.5-5.1)
[2022-12-08] MEDS: BLOOD SUGAR DIAGNOSTIC 1 EACH STRIP VI SCH ×4 (07:30→22:00)
--- NOTE | 2022-12-08 07:30 | NUR ---
Received patient sleeping with NAD noted at this time. Pt was admitted to tele yesterday at 2252 and is waiting for tele bed. Pt on cont property assessment monitor, pulse ox and BP, VSS.
[2022-12-08] MEDS: ASPIRIN 81 MG TAB.CHEW PO SCH (09:00)
--- NOTE | 2022-12-08 10:00 | NUR ---
Pt pulled his saline lock out (cath intact), pt stated he does not want it. Offered pt breakfast but pt stated he is not hungry.
--- NOTE | 2022-12-08 11:00 | NUR ---
Dr. Gilman in to see pt.
--- NOTE | 2022-12-08 13:00 | NUR ---
Pt is awake, alert and oriented x 1 (self). Pt moved to room ER 2B, placed in regular hospital bed for comfort. Remains on cont monitoring tech and pulse ox. Pt denies any pain or discomfort at this time. Pt was offered lunch, did not want to eat but drank water. Pending tele transfer when bed available.
--- NOTE | 2022-12-08 13:30 | NUR ---
Pt assisted to bedside commode, pt had a large BM.
[2022-12-08] MEDS ORDERED: HYDROCODONE/APAP 5-325MG TABLET PO PRN (15:00)
[2022-12-08] MEDS ORDERED: ACETAMINOPHEN 325 MG TABLET-SA PATIENTS-PAIN ONLY PO PRN (15:00)
[2022-12-08] MEDS ORDERED: FLEET ENEMA 133 ML BOTTLE RC PRN (15:00)
[2022-12-08] MEDS ORDERED: ALBUTEROL SULFATE 8 GM HFA.AER.AD IH PRN (15:00)
[2022-12-08] MEDS ORDERED: HALOPERIDOL LACTATE 5 MG/1 ML VIAL IM ONE (15:00)
[2022-12-08] MEDS ORDERED: MAGNESIUM HYDROXIDE 30 ML LIQUID UDC PO PRN (15:00)
[2022-12-08] MEDS ORDERED: NITROGLYCERIN 0.4 MG/TAB BOTTLE SL PRN (15:00)
[2022-12-08] MEDS ORDERED: BISACODYL 10 MG SUPP.RECT RC PRN (15:00)
--- NOTE | 2022-12-08 15:20 | NUR ---
Pt remains confused, pt agitated and getting out of bed with unsteady gait. Pt medicated with Haldon IM as ordered.
[2022-12-08] MEDS ORDERED: HALOPERIDOL LACTATE 5 MG/1 ML VIAL ONE (15:21)
[2022-12-08] MEDS ORDERED: ACETAMINOPHEN 325 MG TABLET PO PRN (16:30)
[2022-12-08] MEDS: GABAPENTIN 300 MG CAPSULE PO SCH (17:00)
[2022-12-08] MEDS: FERROUS SULFATE 325 MG TABEC PO SCH (17:00)
[2022-12-08] MEDS: SENNOSIDES 1 TABLET PO SCH (17:00)
[2022-12-08] MEDS ORDERED: hydrALAZINE HCL 25 MG TABLET PO SCH (17:00)
[2022-12-08] MEDS: buPROPion SR 100 MG TABLET.SA PO SCH (17:00)
[2022-12-08] MEDS ORDERED: FAMOTIDINE 20 MG TABLET PO SCH (17:00)
[2022-12-08] MEDS ORDERED: ALBUTEROL SULFATE 2.5 MG/3 ML NEBU NEB PRN (17:30)
[2022-12-08] MEDS: ISOSORBIDE MONONITRATE 60 MG TAB.SR.24H PO SCH (21:00)
--- NOTE | 2022-12-08 21:10 | NUR ---
Patient has been admitted to third floor TELE room 318
[2022-12-08] MEDS ORDERED: DOXYCYCLINE HYCLATE 100 MG INJ IV ONE (21:20)
[2022-12-08] MEDS: DOXYCYCLINE HYCLATE IV 100 MG in IV DEXTROSE 5% 100 ML IV SCH (21:22)
--- NOTE | 2022-12-08 21:39 | NUR ---
Report given to Ivana ALEGRIA
--- NOTE | 2022-12-08 21:49 | NUR ---
Placed 22G IV to right wrist.
--- NOTE | 2022-12-08 21:49 | NUR ---
Placed 18F coude indwelling catheter per Fredrick INFANTE.
[2022-12-08] MEDS ORDERED: ATORVASTATIN 20 MG TABLET ONE (21:54)
[2022-12-08] MEDS: ATORVASTATIN 20 MG TABLET PO SCH (22:00)
--- NOTE | 2022-12-08 22:25 | NUR ---
Patient taken to third floor room 318 via gurney with personal belongings. Patient in stable condition, no signs of distress noted.
[2022-12-08 22:54] VITALS: BP 109/68
[2022-12-08] MEDS ORDERED: CEFEPIME HCL 1 G VIAL ONE (23:07)
[2022-12-08] MEDS: CEFEPIME HCL 1 G in IV DEXTROSE 5% 50 ML IV SCH (23:31)
[2022-12-09] MEDS ORDERED: CEFEPIME HCL 1 G VIAL ONE (03:29)
[2022-12-09 04:00] VITALS: BP 163/73
[2022-12-09] MEDS: CEFEPIME HCL 1 G in IV DEXTROSE 5% 50 ML IV SCH (05:10)
[2022-12-09] MEDS: LEVOTHYROXINE SODIUM 100 MCG TABLET PO SCH (06:08)
[2022-12-09] MEDS: hydrALAZINE HCL 25 MG TABLET PO SCH ×3 (06:57→21:48)
[2022-12-09 07:02] LABS: HEMATOCRIT 31.4 % (36.7-47.1); MEAN CORPUSCULAR HEMOGLOBIN 30.3 uug (23.8-33.4); MEAN CORPUSCULAR VOLUME 90.6 fL (73.0-96.2); PLATELET COUNT (AUTO) 379 K/uL (152-348)
[2022-12-09] MEDS: BLOOD SUGAR DIAGNOSTIC 1 EACH STRIP VI SCH ×4 (07:05→21:37)
[2022-12-09 07:07] LABS: CREATININE 1.5 mg/dL (0.6-1.3); MAGNESIUM 2.2 mg/dL (1.8-2.4); PHOSPHOROUS 3.2 mg/dL (2.5-4.9)
[2022-12-09] MEDS: IV NS 1000 ML 1,000 ML IV PRN (07:20)
[2022-12-09 08:00] VITALS: BP 156/70
[2022-12-09] MEDS ORDERED: Medication Not On Formulary EA (Empagliflozin (Jardiance) 25 MG) PO SCH (09:00)
[2022-12-09] MEDS ORDERED: KETOCONAZOLE 2% SHAMPOO 120 ML BOTTLE TP SCH ×2 (09:00→10:59)
[2022-12-09] MEDS: PROTEIN SUPPLEMENT (PROSTAT) 30 ML LIQUID PO SCH (09:00)
[2022-12-09] MEDS ORDERED: JARDIANCE 25MG PO SCH (09:00)
[2022-12-09] MEDS ORDERED: Medication Not On Formulary EA (Cranberry Fruit (Cranberry) 450 MG) PO SCH (09:00)
[2022-12-09] MEDS ORDERED: NITROGLYCERIN 0.4 MG/TAB BOTTLE SL PRN (10:26)
[2022-12-09] MEDS ORDERED: BISACODYL 10 MG SUPP.RECT RC PRN (10:57)
[2022-12-09] MEDS ORDERED: FLEET ENEMA 133 ML BOTTLE RC PRN (11:00)
[2022-12-09] MEDS: SENNOSIDES 1 TABLET PO SCH ×2 (11:18→18:46)
[2022-12-09] MEDS: ASPIRIN 81 MG TAB.CHEW PO SCH (11:18)
[2022-12-09] MEDS: buPROPion SR 100 MG TABLET.SA PO SCH ×2 (11:19→18:46)
[2022-12-09] MEDS: OMEGA-3 FATTY ACIDS/FISH OIL CAPSULE PO SCH (11:19)
[2022-12-09] MEDS: FERROUS SULFATE 325 MG TABEC PO SCH ×2 (11:19→18:46)
[2022-12-09] MEDS: GABAPENTIN 300 MG CAPSULE PO SCH ×3 (11:19→18:46)
[2022-12-09] MEDS: MULTIVITAMINS,THERAPEUTIC TABLET PO SCH (11:19)
[2022-12-09] MEDS: CHOLECALCIFEROL 1,000 UNIT TABLET PO SCH (11:19)
[2022-12-09] MEDS: ARIPIPRAZOLE 10 MG TABLET PO SCH (11:19)
[2022-12-09] MEDS: CLOPIDOGREL 75 MG TABLET PO SCH (11:19)
[2022-12-09] MEDS: FAMOTIDINE 20 MG TABLET PO SCH (11:19)
[2022-12-09] MEDS: BENZTROPINE MESYLATE 1 MG TABLET PO SCH (11:19)
[2022-12-09] MEDS: DOXYCYCLINE HYCLATE IV 100 MG in IV DEXTROSE 5% 100 ML IV SCH ×2 (11:20→21:34)
[2022-12-09 12:08] VITALS: BP 179/78
[2022-12-09] MEDS: CEFEPIME HCL 2 G in IV DEXTROSE 5% 100 ML IV SCH (14:41)
[2022-12-09 15:40] VITALS: BP 180/69
--- NOTE | 2022-12-09 18:48 | NUR ---
pt eating and tolerating well vss
[2022-12-09 20:00] VITALS: BP 126/40
--- NOTE | 2022-12-09 20:00 | NUR ---
patient received in be dalert and responsive vital sign stable no sign of distress noted nade safe and comfortable,.
[2022-12-09] MEDS: FLUCONAZOLE 100 MG TABLET PO SCH (20:45)
[2022-12-09] MEDS ORDERED: TAMSULOSIN HCL 0.4 MG CAP.SR.24H PO SCH (21:00)
[2022-12-09] MEDS: ISOSORBIDE MONONITRATE 60 MG TAB.SR.24H PO SCH (21:35)
[2022-12-09] MEDS: ATORVASTATIN 20 MG TABLET PO SCH (21:36)
[2022-12-10] MEDS: CEFEPIME HCL 2 G in IV DEXTROSE 5% 100 ML IV SCH ×2 (03:17→14:00)
[2022-12-10 04:00] VITALS: BP 143/95
--- NOTE | 2022-12-10 04:55 | NUR ---
patient in bed asleep voital sign stable no sign of distress noted made afe and comfortable.
[2022-12-10] MEDS: hydrALAZINE HCL 25 MG TABLET PO SCH ×2 (05:55→14:33)
[2022-12-10] MEDS: LEVOTHYROXINE SODIUM 100 MCG TABLET PO SCH (06:20)
[2022-12-10] MEDS: BLOOD SUGAR DIAGNOSTIC 1 EACH STRIP VI SCH ×2 (07:03→11:30)
[2022-12-10 07:28] LABS: HEMATOCRIT 32.2 % (36.7-47.1); MEAN CORPUSCULAR HEMOGLOBIN 29.4 uug (23.8-33.4); MEAN CORPUSCULAR VOLUME 90.2 fL (73.0-96.2); PLATELET COUNT (AUTO) 413 K/uL (152-348)
[2022-12-10 07:59] LABS: ALANINE AMINOTRANSFERASE 10 U/L (16-63); ALKALINE PHOSPHATASE 87 U/L (50-136); ASPARTATE AMINOTRANSFERASE < 5 U/L (15-37); BILIRUBIN,TOTAL 0.2 mg/dL (0.2-1.0); CHLORIDE 109 mmol/L (98-107); CREATININE 1.6 mg/dL (0.6-1.3); GLUCOSE 162 mg/dL (74-106); MAGNESIUM 2.2 mg/dL (1.8-2.4); PHOSPHOROUS 3.1 mg/dL (2.5-4.9); POTASSIUM 4.2 mmol/L (3.5-5.1); TOTAL PROTEIN, SERUM 7.7 g/dL (6.4-8.2); UREA NITROGEN, BLOOD 30 mg/dL (7-18)
[2022-12-10 08:01] LABS: THYROID STIMULATING HORMONE 2.985 mIU/mL (0.358-3.740)
[2022-12-10 08:27] LABS: CARBON DIOXIDE 26 mmol/L (21-32)
[2022-12-10] MEDS: BENZTROPINE MESYLATE 1 MG TABLET PO SCH (08:34)
[2022-12-10] MEDS: FERROUS SULFATE 325 MG TABEC PO SCH (08:35)
[2022-12-10] MEDS: FLUCONAZOLE 100 MG TABLET PO SCH (08:35)
[2022-12-10] MEDS: SENNOSIDES 1 TABLET PO SCH (08:35)
[2022-12-10] MEDS: buPROPion SR 100 MG TABLET.SA PO SCH (08:35)
[2022-12-10] MEDS: FAMOTIDINE 20 MG TABLET PO SCH (08:35)
[2022-12-10] MEDS: OMEGA-3 FATTY ACIDS/FISH OIL CAPSULE PO SCH (08:35)
[2022-12-10] MEDS: CHOLECALCIFEROL 1,000 UNIT TABLET PO SCH (08:35)
[2022-12-10] MEDS: MULTIVITAMINS,THERAPEUTIC TABLET PO SCH (08:35)
[2022-12-10] MEDS: ASPIRIN 81 MG TAB.CHEW PO SCH (08:35)
[2022-12-10] MEDS: CLOPIDOGREL 75 MG TABLET PO SCH (08:35)
[2022-12-10] MEDS: ARIPIPRAZOLE 10 MG TABLET PO SCH (08:35)
[2022-12-10] MEDS: GABAPENTIN 300 MG CAPSULE PO SCH ×2 (08:36→12:16)
[2022-12-10] MEDS: PROTEIN SUPPLEMENT (PROSTAT) 30 ML LIQUID PO SCH (08:37)
[2022-12-10] MEDS: DOXYCYCLINE HYCLATE IV 100 MG in IV DEXTROSE 5% 100 ML IV SCH (08:51)
[2022-12-10] MEDS ORDERED: EMPAGLIFLOZIN 25 MG TABLET PO SCH (09:00)
[2022-12-10] MEDS: IV NS 1000 ML 1,000 ML IV PRN (10:01)
[2022-12-10 10:29] LABS: CHOLESTEROL 113 mg/dL (<200); HDL CHOLESTEROL 37 mg/dL (40-60); TRIGLYCERIDES 145 MG/DL (30-150)
--- NOTE | 2022-12-10 12:29 | NUR ---
Pt. refused the BP check by FINAL TESTER and BS check by RN.
[2022-12-10] MEDS ORDERED: FLUC100T PO (13:01)
[2022-12-10] MEDS ORDERED: TAMS-3 PO (13:01)
[2022-12-10] MEDS ORDERED: DOXY100T2 PO (13:01)
[2022-12-10 14:33] VITALS: BP 145/58
--- NOTE | 2022-12-10 14:39 | NUR ---
Pt. discharged to [facility]. Pt. noted to be stable upon the discharge. IV line removed. Necessary document signed and a copy placed in pt. chart. Per DR. Martínez did not removed the Gonzales cath. Skin treatment done and a picture included in pt. chart. Called the receiving SN[facility] and gave the report to Yessi.
== END 2022-12-10 14:40 | DRG 727 ==
LOC: ER 19:00 → TRANSITION 22:45 → TELE3 12-08 21:51 → MEDSURG3 12-09 10:00
PROVIDERS: ADMIT Nurse Practitioner Acute Care; ATTEND Student in an Organized Health Care Education/Training Program
DX: B37.49 Other urogenital candidiasis (principal); G92.8 Other toxic encephalopathy; N17.0 Acute kidney failure with tubular necrosis; I21.A1 Myocardial infarction type 2; F03.94 Unspecified dementia, unspecified severity, with anxiety; F03.93 Unspecified dementia, unspecified severity, with mood disturbance; E44.0 Moderate protein-calorie malnutrition; E87.1 Hypo-osmolality and hyponatremia; E11.22 Type 2 diabetes mellitus with diabetic chronic kidney disease; N18.30 Chronic kidney disease, stage 3 unspecified; J44.9 Chronic obstructive pulmonary disease, unspecified; F20.9 Schizophrenia, unspecified; E11.65 Type 2 diabetes mellitus with hyperglycemia; I13.10 Hypertensive heart and chronic kidney disease without heart failure, with stage 1 through stage 4 chronic kidney disease, or unspecified chronic kidney disease; E11.51 Type 2 diabetes mellitus with diabetic peripheral angiopathy without gangrene; F17.210 Nicotine dependence, cigarettes, uncomplicated; E11.40 Type 2 diabetes mellitus with diabetic neuropathy, unspecified; E03.9 Hypothyroidism, unspecified; Z20.822 Contact with and (suspected) exposure to COVID-19; D63.8 Anemia in other chronic diseases classified elsewhere; E11.621 Type 2 diabetes mellitus with foot ulcer; I25.2 Old myocardial infarction; I25.10 Atherosclerotic heart disease of native coronary artery without angina pectoris; R93.89 Abnormal findings on diagnostic imaging of other specified body structures; Z78.1 Physical restraint status; Z79.84 Long term (current) use of oral hypoglycemic drugs; N31.9 Neuromuscular dysfunction of bladder, unspecified; E78.5 Hyperlipidemia, unspecified; N28.1 Cyst of kidney, acquired; N20.0 Calculus of kidney; F31.9 Bipolar disorder, unspecified; L97.529 Non-pressure chronic ulcer of other part of left foot with unspecified severity; L97.519 Non-pressure chronic ulcer of other part of right foot with unspecified severity; B96.89 Other specified bacterial agents as the cause of diseases classified elsewhere; M19.90 Unspecified osteoarthritis, unspecified site; Z93.6 Other artificial openings of urinary tract status; M48.00 Spinal stenosis, site unspecified; Z79.4 Long term (current) use of insulin; Z79.02 Long term (current) use of antithrombotics/antiplatelets; Z79.899 Other long term (current) drug therapy; Z87.440 Personal history of urinary (tract) infections; Z89.429 Acquired absence of other toe(s), unspecified side; Z86.73 Personal history of transient ischemic attack (TIA), and cerebral infarction without residual deficits
CPT/HCPCS: 36415; 71045; 83605; 83735; 84100; 84443; 84484; 85025; 93005; 93307; A4663; A6209; G0378; J0692; J0696; J1630; J1815; J2060; J2250; J3490; J7040